=== PATIENT | female | born 1935 | race Caucasian/White ===

== ENCOUNTER 2016-06-16 17:02 | Emergency (ER) | payer MEDICARE, MEDICAID ==
--- NOTE | 2016-06-17 01:57 | RAD ---
PORTABLE CHEST: HISTORY: Shortness of breath. COMPARISON: 02/24/2014 study. Heart size appears slightly enlarged. Suboptimal inspiration. There are linear atelectatic change in the bases. No signs of overt failure. Arthritic changes of both shoulders are noted. IMPRESSION: Cardiomegaly with subsegmental atelectasis in the lung bases. POS: [facility]
== END 2016-06-16 20:07 ==
LOC: MADERS 17:02
DX: R09.89 Other specified symptoms and signs involving the circulatory and respiratory systems (principal); E03.9 Hypothyroidism, unspecified
CPT/HCPCS: 71010

== ENCOUNTER 2016-06-21 09:39 | Inpatient (IN) | payer MEDICARE, MEDICAID ==
[~2016-06-21 09:39] MED LIST: Iopamidol 370 76% 100 ML VIAL ONE
[2016-06-21 10:29] LABS: INR-International Normal Ratio 1.1; PTT 26.4 SEC (22.9-36.1); Prothrombin Time 14.8 SEC (12.0-14.7)
[2016-06-21 10:41] LABS: CKMB 3.4 ng/mL (0-6.6); Troponin I 0.056 ng/mL (< 0.028)
[2016-06-21 10:45] LABS: #Basophils 0.1 thou/uL (0.0-0.2); #Eosinphils 0.2 thou/uL (0.0-0.7); #Lymphocytes 1.8 thou/uL (1.20-3.40); #Monocytes 0.4 thou/uL (0.11-0.59); #Neutrophils 9.5 thou/uL (1.40-6.50); %Basophils 0.5 % (0.0-1.0); %Eosinophils 1.5 % (0.0-10.0); %Lymphocytes 14.8 % (21.0-51.0); %Monocytes 3.5 % (0.0-10.0); %Neutrophils 79.7 % (42.0-75.0); ALT (SGPT) 10 U/L (0-55); AST (SGOT) 17 U/L (5-34); Albumin 4.2 g/dL (3.4-4.8); Alkaline Phosphatase 94 U/L (40-150); Anion Gap 21 mmol/L (10-20); BUN (Urea Nitrogen) 16 mg/dL (9.8-20.1); Bilirubin, Total 0.3 mg/dL (0.2-1.2); CK (CPK) 106 U/L (29-168); Calc. Creatinine Clearance 0 mL/min (70-130); Calcium 9.1 mg/dL (7.8-10.44); Carbon Dioxide 23 mmol/L (23-31); Chloride 102 mmol/L (98-107); Estimated GFR-MDRD 47; Globulin 2.8 g/dL (2.4-3.5); Glucose 239 mg/dL (83-110); Hemoglobin 13.7 g/dL (12.0-16.0); Large Platelets SLIGHT; MDiff Complete? YES; Magnesium 2.2 mg/dL (1.6-2.6); Mean Corpuscular Hemoglobin 29.4 pg (27.0-31.0); Mean Platelet Volume 12.5 fL (7.4-10.4); Platelet Count 202 thou/uL (130-400); Potassium 3.7 mmol/L (3.5-5.1); RBC Distribution Width 12.8 % (11.5-14.5); Red Blood Cell (RBC) Count 4.66 mill/uL (4.20-5.40); Sodium 142 mmol/L (136-145); White Blood Cell (WBC) Count 11.9 thou/uL (4.8-10.8)
--- NOTE | 2016-06-21 11:14 | RAD ---
PORTABLE CHEST: Date: 06/21/16 HISTORY: Shortness of breath. COMPARISON: 06/16/16. FINDINGS: Cardiomegaly. There is a poor inspiration which degrades evaluation. There is evidence of bibasilar atelectasis and small effusions. Vascular markings appear upper normal and stable. There is prominent deviation of the trachea to the right, although the patient is somewhat rotated. This is probably due to aorta and is stable when compared to prior studies. IMPRESSION: Bibasilar atelectasis and evidence of small effusions. Lung bases are poorly evaluated on this mary ble exam due to poor inspiration and exposure factors. POS: [facility]
--- NOTE | 2016-06-21 12:26 | CT ---
POSTCONTRAST SOFT TISSUE NECK CT: HISTORY: Evaluate for obstruction. COMPARISON: None. TECHNIQUE: Postcontrast soft tissue neck CT is performed in the axial plane. Sagittal and coronal reformatted images are submitted for interpretation. FINDINGS: Hypoattenuation of the brain parenchyma, incompletely evaluated. Noncontrast head CT is recommended . Mild bilateral right sphenoid sinus and maxillary sinus disease. Adequate aeration of the mastoid a ir cells. Aerodigestive tract is patent. No mucosal abnormality. Symmetric attenuation of the parotid glands and submandibular glands. Thyroid gland is unremarkable . Symmetric attenuation of the sternocleidomastoid muscles. Grossly, the great vessels of the neck ar e patent. There is mass effect upon the posterior supraglottic larynx due to medial deviation of breann th internal carotid arteries. There are varying degrees of central canal stenosis and foraminal narrowing on the basis of degenera tive change. Upper mediastinum is unremarkable. Chronic changes of the lung apices are suspected. Vertebral body heights are maintained. No fracture. Sagittal reformatted images demonstrate preser vation of fatty raphae of the tongue. Epiglottis is normal caliber. Preepiglottic fat is preserved . No radiopaque foreign body is noted. IMPRESSION: 1. No radiopaque foreign in the aerodigestive tract. 2. Additional findings as above. 3. Hypoattenuation of the visualized brain parenchyma. Consider brain CT. POS: [facility]
[2016-06-21] MEDS ORDERED: Enoxaparin Sodium 40 MG/0.4 ML SYRINGE ONE ×2 (13:38)
[2016-06-21 15:45] VITALS: BMI 34.6
[2016-06-21] MEDS ORDERED: Enoxaparin Sodium 40 MG/0.4 ML SYRINGE SC SCH (15:57)
[2016-06-21] MEDS ORDERED: Bisacodyl 10 MG SUPP PR PRN (15:57)
[2016-06-21] MEDS ORDERED: Sodium Chloride 0.9% 1,000 ML IV SCH (15:57)
[2016-06-21] MEDS ORDERED: Ondansetron HCl/PF 4 MG/2 ML Vial SLOW IVP PRN (15:57)
[2016-06-21] MEDS ORDERED: HYPROMELLOSE EA EYE PRN (16:11)
[2016-06-21] MEDS: Sodium Chloride 0.9% 1,000 ML IV SCH (17:34)
--- NOTE | 2016-06-21 22:36 | HP ---
DATE OF ADMISSION: 06/21/2016 CHIEF COMPLAINT: Recurrent choking spells. HISTORY OF PRESENT ILLNESS: The patient is an 81-year-old white female, who resides at [facility]. Patient has a history of advanced Alzheimer's disease that has left her bed confined, requiring total care and a pureed diet. Patient is incontinent of urine and stools and has not essentially nonverbal. The patient has a DNR. The patient had a choking spell while being fed on 06/16/2016. Patient was sent to the emergency room by the time EMS arrived, apparently the choking had stopped. She was evaluated in the emergency room and was free of fever and appeared in no respiratory distress and chest x-ray showed just cardiomegaly and some areas of atelectasis at the lung bases. The patient was returned to the alf, where she was continued on a blended diet and was tried on thickened liquids. Patient again had a severe choking episode on 06/21/2016, at the day of admission. The patient was brought to the emergency room, where she was evaluated by that time she appeared in no respiratory distress. She underwent further evaluation including repeat chest x-ray, which showed poor inspiratory effort, but no definite infiltrate. CT scan of the soft tissue of the neck was done to ensure that there was no foreign body and this showed no evidence of foreign body. The patient showed spondylitic changes in the C-spine with 30 degrees of central canal stenosis. There was a mass effect up on the posterior supraglottic larynx due to medial deviation of the left to right internal carotid arteries. LABORATORY DATA: The patient's lab studies showed H\T\H of 13 7 and 42.9, white blood cell count of 11,900 with 80% segs, 15% lymphocytes, and platelet count of 202,000. Her INR was 1.1. Her sodium 142, potassium 3.7, BUN 16, creatinine 1.12 with estimated GFR of 47, glucose 239. CK-MB 3.4, troponin I was 0.056. B-type natriuretic peptide 46, albumin 4.2. No urine was obtained. The patient was admitted to the hospital for repeated episodes of choking. The patient was started on IV fluids in the emergency room. The patient was seen soon after her admission to her hospital room, no information could be obtained from the patient. Reviewed my records and the ER records, and also had a chance to visit with the patient's daughter Liz Zapien. Ms. Partida said that Ms. Hooks has been in [facility] for 7 years and another home 10 years prior to this. She said that even on the blended diet lately she has been choking and she said that she does not want any type of tube feeding performed and she said that she was planning on placing patient under hospice care and asked that we watch her here to see if there is anything we can do to assist with her comfort and swallowing. PAST MEDICAL HISTORY: Advanced Alzheimer's disease, sleep in patient's bed, confined requiring total care. She is incontinent of urine and stools and is nonverbal. Patient has hypothyroidism, hypercholesterolemia, osteoporosis. Patient has had a hysterectomy. PRESENT MEDICINES: Levothyroxine 25 mcg daily, multivitamin 1 a day, liquid Tears 2 drops in both eyes b.i.d., Namenda 10 mg b.i.d., Caltrate D 600 mg b.i.d., Remeron 7.5 mg at bedtime, Aricept 10 mg daily, Imodium 1 b.i.d. p.r.n. diarrhea, acetaminophen 500 mg 2 every 4 hours as needed, not to exceed 3 grams a day. Robitussin-DM 10 mL every 4 hours as needed for cough. ALLERGIES: CODEINE. REVIEW OF SYSTEMS: The patient not able to answer in review of system. ADLs: The patient requires total care. She has to be fed and she is on pureed diet. She is incontinent of urine and stools. HABITS: Alcohol none. Tobacco none. SOCIAL HISTORY: Patient has resided in the alf for the last 17 years, has been in [facility] for the last 7 years. CODE STATUS: DNR. PHYSICAL EXAMINATION: GENERAL: Shows an 81-year-old white female, who is lying in bed with the head elevated. HEAD: Atraumatic. EYES: Patient's eyes were closed, but the lids were gently raised and her pupils were equal, round, and reactive. Sclerae nonicteric. EARS: Blocked by cerumen. NOSE: Normal. MOUTH AND THROAT: Mucus membranes are moist. NECK: Carotids are equal and strong. There is no thyromegaly and no masses. LUNGS: Patient has increased breath sounds at the posterior bases with some coarse rales, otherwise chest is clear. HEART: Regular rate, no murmurs. ABDOMEN: Soft with no organomegaly, nor areas of tenderness. EXTREMITIES: No edema. SKIN: Dry, mild scaly, places are little mildly red and mild scaly. NEUROLOGIC: Patient eyes. Occasionally, she will moan but does not attempt to talk. She has severe generalized weakness and cannot move any of her extremities voluntarily. IMPRESSION: 1. Dysphagia, manifest with recurrent choking episodes with meals. A. Initial episode occurred on 06/16/2016 and her current episode on the day of admission 06/21/2016. B. Etiology secondary to probable advanced end stages of Alzheimer's disease. 2. Advanced Alzheimer's disease. A. Leaving the patient bed confined, requiring total care. B. Leaving patient nonverbal. 3. Hypothyroidism. 4. Code status: DNR. 5. Dry skin. PLAN: I have visited with patient's daughter, Liz Zapien and told her that the swelling probably as a result of her advanced Alzheimer disease. Her daughter agrees with this and said this is what she had also thought, she does not want any type of enteral feeding. She does not want a PEG tube or nasogastric tube placed. While hospitalized here we will try patient on a pureed diet with thickened liquids and was someone to feed her. This daughter plans on placing her under hospice care when she returns to the alf. We will stop some of her oral medications that are probably of no benefit now that would include the Namenda and Aricept particularly with advanced stages of Alzheimer. We stopped the calcium supplementation. We will place patient on morphine concentrate if needed for discomfort and lorazepam sublingual if needed for discomfort. Anticipate once she is discharged and that she will go under hospice care. BEATRIS
[2016-06-22 08:54] LABS: Anion Gap 15 mmol/L (10-20); BUN (Urea Nitrogen) 16 mg/dL (9.8-20.1); Calc. Creatinine Clearance 64 mL/min (70-130); Calcium 8.7 mg/dL (7.8-10.44); Carbon Dioxide 23 mmol/L (23-31); Chloride 108 mmol/L (98-107); Estimated GFR-MDRD 62; Glucose 97 mg/dL (83-110); Potassium 3.7 mmol/L (3.5-5.1); Sodium 142 mmol/L (136-145)
[2016-06-22 09:07] LABS: #Basophils 0.1 thou/uL (0.0-0.2); #Eosinphils 0.1 thou/uL (0.0-0.7); #Lymphocytes 1.6 thou/uL (1.20-3.40); #Monocytes 0.5 thou/uL (0.11-0.59); #Neutrophils 5.4 thou/uL (1.40-6.50); %Eosinophils 1.8 % (0.0-10.0); %Lymphocytes 20.5 % (21.0-51.0); %Monocytes 6.8 % (0.0-10.0); %Neutrophils 69.9 % (42.0-75.0); Hemoglobin 12.5 g/dL (12.0-16.0); Mean Corpuscular HGB CONC 34.4 g/dL (32.0-36.0); Mean Corpuscular Hemoglobin 31.1 pg (27.0-31.0); Mean Corpuscular Volume 90.4 fl (81.0-99.0); Mean Platelet Volume 14.6 fL (7.4-10.4); Platelet Count 188 thou/uL (130-400); RBC Distribution Width 12.6 % (11.5-14.5); Red Blood Cell (RBC) Count 4.02 mill/uL (4.20-5.40); White Blood Cell (WBC) Count 7.7 thou/uL (4.8-10.8)
[2016-06-22] MEDS: Sodium Chloride 0.9% 1,000 ML IV SCH (10:33)
[2016-06-22] MEDS: Dextrose 5 %-0.45 % NaCl 1,000 ML IV SCH (11:30)
[2016-06-22] MEDS: Lorazepam 0.5 MG TAB PO PRN (17:48)
--- NOTE | 2016-06-22 17:54 | PRG ---
DATE OF SERVICE: 06/22/2016 SUBJECTIVE: Patient has been stable. The nurses said she occasionally will say something, she has appeared comfortable. She has not had any choking spell, but she is n.p.o. Speech therapist will c heck her today with recommendations on a diet. OBJECTIVE: GENERAL: The patient is lying in bed. She appears comfortable and in no distress. VITAL SIGNS: Her temperature is 98, pulse 97, respirations 22, O2 sat 94% on room air, blood pressu re 169/80. LUNGS: Clear, although breath sounds are poor. Breath sounds from bases are diminished, but probab ly from effort. HEART: Regular rate. EXTREMITIES: No edema. LABORATORY DATA: H\T\H is 12.5 and 36.4. White blood cell count 7700 with 70% segs, 21% lymphocyte s, and a platelet count of 188,000. Sodium 142, potassium 3.7, BUN 16, creatinine down to 0.87, GFR is increased from 47-62, glucose 97. TSH 1.9. ASSESSMENT: 1. Recurrent choking episodes. A. Initial episode occurred on 06/16/2016 and her current episode on the day of admission 06/21. B. Etiology secondary to probable advanced end stages of Alzheimer's disease. C. Presently n.p.o. Speech therapy to evaluate today as of 06/22/2016. 2. Advanced Alzheimer's disease. A. Leaving the patient bed confined, requiring total care. B. Leaving patient nonverbal. 3. Hypothyroidism. A. Adequate thyroid replacement as up to 06/22/2016. 4. Code status: DNR. 5. Dry skin. PLAN: We will change fluids to D5 half normal saline at 60 an hour of speech therapy. We will see today for recommendations.
[2016-06-23] MEDS: Dextrose 5 %-0.45 % NaCl 1,000 ML IV SCH ×2 (04:16→09:53)
--- NOTE | 2016-06-23 11:23 | PRG ---
DATE OF SERVICE: 06/23/2016 SUBJECTIVE: Nurses report no problems with the patient. They said that the speech therapist saw he r and after evaluating her, recommended liquid diet, nectar-thickened and pureed diet as pleasure fe eding only. She has been tolerating this fine and has not had any choking spells. OBJECTIVE: The patient is lying in her bed. She is chanting a little bit, but could not understand this. Her eyes are open. She appears in no distress. Her vital signs show a temperature of 97.6, pulse 59, respirations 20, O2 saturation 94% on room air, blood pressure 133/73. Her lungs are edna ar. Heart, regular rate. ASSESSMENT: 1. Dysphagia manifests with recurrent choking episodes. A. Initial episode occurred on 06/16/2016 and then again on 06/21/2016. B. Etiology secondary to probable advanced end stages of Alzheimer's disease. C. Presently tolerating pleasure feeding with nectar-thickened liquids and pureed diet. 2. Advanced Alzheimer's disease. A. Leaving the patient bed confined, requiring total care. B. Leaving patient nonverbal. 3. Hypothyroidism. A. Adequate thyroid replacement as up to 06/22/2016. PLAN: Will continue present care and anticipate discharge back to the [facility] on Friday where she will enter hospice care. We will cut IV fluids rate back to 25 mL per hour of the D5 , 0.25% normal.
[2016-06-23] MEDS: Lorazepam 0.5 MG TAB PO PRN (11:30)
[2016-06-23] MEDS: Morphine Sulfate 10 mg/0.5 ml Oral Syringe SL PRN (15:34)
[2016-06-24] MEDS: Dextrose 5 %-0.45 % NaCl 1,000 ML IV SCH (08:05)
[2016-06-24] MEDS: Morphine Sulfate 10 mg/0.5 ml Oral Syringe SL PRN (08:08)
[2016-06-24] MEDS ORDERED: HYPROMELLOSE EA EYE PRN (08:20)
[2016-06-24] MEDS ORDERED: Artificial Tear Sol 15 ML BOT EA EYE PRN (08:22)
[2016-06-24] MEDS ORDERED: Lorazepam 0.5 MG TAB PO PRN (08:36)
[2016-06-24 09:18] VITALS: BP 123/65; TEMP 97.5
--- NOTE | 2016-06-24 10:56 | DIS ---
DATE OF DISCHARGE: 06/24/2016 FINAL DIAGNOSES: 1. Dysphagia manifests with recurrent choking episodes. A. Initial episode occurred on 06/16/2016 and then again on 06/21/2016. B. Etiology secondary to probable advanced end stages of Alzheimer's disease. C. Presently tolerating pleasure feeding with nectar-thickened liquids and pureed diet. 2. Advanced Alzheimer's disease. A. Leaving the patient bed confined, requiring total care. B. Leaving patient nonverbal. 3. Hypothyroidism. A. Adequate thyroid replacement as up to 06/22/2016. SUMMARY: The patient is an 81-year-old white female who has a history of advanced Alzheimer's disea se that has left her bed confined requiring total care. [facility], the last 7 of which have been in [place]. She has gradually progressed to where she has become bed confined, incontinent of urine and stools, most of the time nonverbal and requir es feeding. The patient was sent to the emergency room on 06/16/2016 after a choking spell with eat ing. By the time she arrived to the emergency room, the choking episode had all resolved and she ap peared stable. Chest x-ray showed no infiltrate and she was [facility] with cont inuation of her pureed diet. This occurred again on 06/21/2016 prompting her to be sent to the [facility] room. She was again evaluated and at that time was stable. The patient was admitted to the [facility] for the dysphagia manifest with recurring choking episodes. The patient was initially seen after her admission to the hospital room. Review of her chest x-ray showed no infiltrates. Her CT scan of the neck soft tissue showed no evidence of any foreign body. Her lab studies showed an H\T\H of 13.7 and 42.9 with a white cell count of 11,900. BUN was 16, cr eatinine 1.12, glucose 239. B-type natriuretic peptide 46. HOSPITAL COURSE: On exam the patient's eyes were closed. She was nonverbal. Her lungs were clear except for some coarse rales at the posterior bases. Heart had a regular rate. Skin turgor was goo d. I visited with the patient's daughter, Logan Stone, and she was well aware of the gradual declin e of her mother. I told her that the dysphagia was probably a result of the advanced Alzheimer's di sease, people in these late stages become anorexic and have difficulty with swallowing. Logan Chase had said that she did not want the patient sent to hospital of higher level of care. She did not w ant the swallowing difficulty investigated further and would not permit any type of feeding tube whe ther it be nasogastric or through a gastrostomy. She had hoped that we could observe her here and o nce stable let her [facility] care. The patient does have a DNR. During the patient's admission she initially was held n.p.o. and was continued on IV fluids with dex trose supplementation. The speech therapist visited the patient and found that she could pleasure f eeds with nectar thickened liquids and pureed diet. She seemed to tolerate small feedings of this w ithout difficulty. Her follow up lab work showed that her blood sugar fasting was 97. TSH was 1.9. The patient had no more choking episodes during her hospitalization. Her IV fluids were stopped o n the morning of 06/24/2016. The patient's condition was stable. She was afebrile and she appeared very comfortable. The arrangements will be made for the patient to be discharged back to [facility] and there will be placed under hospice care. DISPOSITION: DIET: Pleasure feed with nectar thickened liquids and pureed diet. Precautions should be taken whi le offering these pleasure feeding with the patient sitting upright as much as possible and someone feeding her small amounts at very slow intervals. ACTIVITIES: Bed confined. MEDICATIONS: Artificial Tears 1-2 drops in each eye every 4 hours as needed, Dulcolax suppository 1 0 mg 1 per rectum daily p.r.n., lorazepam 0.5 mg b.i.d., sublingual as needed, morphine concentrate 20 mg per mL 1/2 to 1 mL every 2 hours p.r.n. O2 by nasal cannula at 2 liters p.r.n. FOLLOWUP: Please arrange for hospice care with [facility] to see patient. CODE STATUS: DNR.
[2016-06-24] MEDS ORDERED: Sodium Chloride 0.9% 1,000 ML BAG ONE (11:19)
[2016-06-24] MEDS ORDERED: Dextrose 5 %-0.45 % NaCl 1000 ml Bag ONE (11:19)
== END 2016-06-24 12:31 | disposition hospice, inpatient (51) | DRG 392 ==
LOC: MADERS 09:39 → MADMS 14:10 → UNDOADMIN 14:10 → MADMS 14:31
PROVIDERS: ADMIT Family Medicine; ATTEND Family Medicine
DX: R13.10 Dysphagia, unspecified (principal); E86.0 Dehydration; G30.9 Alzheimer's disease, unspecified; F02.80 Dementia in other diseases classified elsewhere, unspecified severity, without behavioral disturbance, psychotic disturbance, mood disturbance, and anxiety; Z74.01 Bed confinement status; E03.9 Hypothyroidism, unspecified; Z66 Do not resuscitate; Z51.5 Encounter for palliative care; E78.00 Pure hypercholesterolemia, unspecified; M81.0 Age-related osteoporosis without current pathological fracture; R32 Unspecified urinary incontinence; R15.9 Full incontinence of feces
CPT/HCPCS: 36415; 70491; 71010; 80048; 80053; 82550; 82553; 83735; 83880; 84443; 84484; 85025; 85610; 85730; 93005; 94760; 96372; 96374; G8996-GN-CM; G8997-GN-CM; G8998-GN-CM; J1610; J1650; J7042; J7050